=== PATIENT | female | born 1995 | race Caucasian/White ===

== ENCOUNTER 2017-07-25 01:20 | Outpatient (CLI) | payer MEDICAID ==
[~2017-07-25] VITALS: Ht 167.6 cm; Wt 96.4 kg
[~2017-07-25 01:20] MED LIST: CEPHALEXIN250 M1 PO; NO HOME MEDICATIONS; PERCOCET 325 MG1 TA2 PO; PRENATAL1 TA1 PO
[2017-07-25 01:37] VITALS: BP 133/79; PULSE 99; TEMP 98.2
[2017-07-25 04:06] VITALS: BP 118/73; PULSE 89
== END 2017-07-25 04:15 | disposition home or self-care (01) ==
LOC: LDRO 01:20
DX: O62.9 Abnormality of forces of labor, unspecified (principal); Z3A.37 37 weeks gestation of pregnancy

== ENCOUNTER 2017-08-01 03:08 | Inpatient (IN) | payer MEDICAID ==
[2017-08-01] VITALS (31 sets, daily range): BP systolic 111–139; BP diastolic 57–82; PULSE 77–100; TEMP 97.5–98.9
[~2017-08-01] VITALS: Ht 167.6 cm; Wt 96.8 kg
[2017-08-01 06:18] LABS: BASO % 0.2 % (0.0-2.0); EOS # 0.1 (0.0-0.7); EOS % 0.6 % (0-4.0); GRAN # 10.5 (1.4-6.5); GRAN % 74.1 % (42.2-75.2); HEMOGLOBIN 12.9 g/dl (12.5-16.0); LYMPH # 2.5 (1.2-3.4); MEAN CELL VOLUME 84 fl (80.0-100.0); MEAN CORPUSCULAR HEMOGLOBIN 27 pg (27.0-31.0); MEAN CORPUSCULAR HGB CONC 32 g/dl (33.0-37.0); MEAN PLATELET VOLUME 10.4 fl (7.4-10.4); MONO # 0.9 (0.1-0.6); MONO % 6.5 % (1.7-9.3); PLATELET COUNT 209 K/mm3 (130-400); RED BLOOD COUNT 4.78 M/mm3 (4.10-5.30); REDCELL DISTRIBUTION WIDTH-CV 14.7 % (11.5-14.5); WHITE BLOOD COUNT 14.1 K/mm3 (4.8-10.8)
[2017-08-02 08:00] VITALS: BP 122/71; PULSE 86; TEMP 97.7
[2017-08-02] MEDS ORDERED: IBU600 MG PO (11:21)
[2017-08-02 16:17] VITALS: BP 115/64; PULSE 81; TEMP 97.7
[2017-08-02 20:30] VITALS: BP 124/71; PULSE 88; TEMP 98.1
[2017-08-03 07:08] VITALS: BP 126/64; PULSE 87; TEMP 97.2
== END 2017-08-03 13:00 | disposition home or self-care (01) | DRG 775 ==
LOC: LDRO 03:08 → OB 03:20 → LDR 03:20 → OB 13:15
PROVIDERS: Obstetrics & Gynecology
PROC: 10E0XZZ Delivery of Products of Conception, External Approach (ICD-10-PCS; principal; 2017-08-01)
DX: O99.824 Streptococcus B carrier state complicating childbirth (principal); Z3A.38 38 weeks gestation of pregnancy; Z37.0 Single live birth
CPT/HCPCS: J1200; J2540; J2590; J7120